=== PATIENT | female | born 1945 | race Caucasian/White ===

== ENCOUNTER → 2016-09-15 08:57 | Outpatient (CLI) | payer MEDICARE, BC ==
[2014-08-18 11:03] VITALS: BMI 20.4
[~2016-09-15 08:57] MED LIST: ARICEPT10 MG PO; CELEXA40 MG PO; CYTOTEC200 MCG PO; DEMEROL50 MG PO; DESERYL100 MG PO; MIDODRINE HCL10 MG PO; NEURONTIN 300300 MG PO; TOPAMAX25 MG PO; VALIUM 2 MG TAB2 MG PO; VOLTAREN75 MG PO
== END | disposition home or self-care (01) ==
LOC: D.MRI 08:57
DX: M75.42 Impingement syndrome of left shoulder (principal)

== ENCOUNTER 2016-10-20 05:58 | Day surgery (SDC) | payer MEDICARE, BC ==
[~2016-10-20] VITALS: Ht 162.6 cm; Wt 51.7 kg
[2016-10-20] MEDS ORDERED: TRAZODONE HCL300 MG PO (06:59)
[2016-10-20] MEDS ORDERED: CLARITIN 10 MG10 MG PO (07:00)
[2016-10-20] MEDS ORDERED: PRAVACHOL40 MG PO (07:00)
[2016-10-20] MEDS ORDERED: FLUDROCORTISON0.1 MG PO (07:01)
[2016-10-20] MEDS ORDERED: CYMBALTA30 MG PO (07:02)
[2016-10-20] MEDS ORDERED: SINGULAIR10 MG PO (07:02)
[2016-10-20 07:03] LABS: HEMATOCRIT 37.7 % (36.0-48.0); HEMOGLOBIN 12.3 g/dL (12-16); MCH 30.3 pg (26.0-34.0); MCHC 32.6 g/dL (31.0-37.0); MCV 92.9 fL (80.0-100.0); MEAN PLATELET VOLUME 9.8 fL (7.4-10.4); RBC 4.06 10x6/uL (4.00-5.40); RDW 12.6 % (11.5-14.5); WBC 4.4 10x3/uL (4.8-10.8)
[2016-10-20] MEDS ORDERED: IMITREX50 MG PO (07:03)
[2016-10-20] MEDS ORDERED: CALCIUM 500 + D1 TAB PO (07:04)
[2016-10-20] MEDS ORDERED: VITAMIN D3400 UNI1 PO (07:05)
[2016-10-20] MEDS ORDERED: FOLIC ACID1 MG PO (07:05)
[2016-10-20 07:17] VITALS: BP 116/82; Ht 162.6 cm; Wt 51.7 kg
[2016-10-20] MEDS ORDERED: MEPERIDINE HCL50 MG PO (09:21)
--- NOTE | 2016-10-20 11:25 | NUR ---
1120 DISCHARGE INSTRUCTIONS COMPLETE. PRESCRIPTION FOR MEPERIDINE GIVEN. INSTRUCTED ON PENDULUM EXERCISES. SHE HAS NO QUESTIONS OR CONCERNS AT THIS TIME. ESCORTED OUT BY VOLUNTEER.
--- NOTE | 2016-10-20 14:36 | OP ---
PATIENT NAME: ALEJANDRO HUGGINS MEDICAL RECORD: [id number] :45 [facility] [place] ADMISSION DATE: SURGEON: ISAIAS LUX, YOLANDA GANDARA DATE OF OPERATION: 10/20/2016 PREOPERATIVE DIAGNOSES: 1. Rotator cuff tear of the right shoulder. 2. Impingement syndrome of the right shoulder. 3. Acromioclavicular arthritis of the right shoulder. POSTOPERATIVE DIAGNOSES: 1. Rotator cuff tear of the right shoulder. 2. Impingement syndrome of the right shoulder. 3. Acromioclavicular arthritis of the right shoulder. PROCEDURES: Right shoulder arthroscopy with arthroscopic subacromial decompression, acromioplasty, bursectomy, rotator cuff repair and distal clavicle excision. SURGEON: Yolanda Esparza MD ANESTHESIA: General. INTRAOPERATIVE COMPLICATIONS: None. SUMMARY OF PATHOLOGIC FINDINGS: Consistent with the preoperative diagnosis, the patient had complete thickness tearing of the rotator cuff anteriorly, the anterior aspect of the supraspinatus type 3 downward sloping acromion with grade IV chondromalacia of acromioclavicular joint. OPERATIVE SUMMARY IN DETAIL: After obtaining the appropriate preoperative orthopedic surgery consent as well as anesthetic consultation, evaluation and clearance, the patient was brought to the operating room and placed on the operating table in supine position. After general laryngeal mask was administered, the patient was placed in a left lateral decubitus position. All pressure points were well padded to include down leg peroneal pad as well as axillary roll. She was held firmly to the operating table using the vacuum pack suction system. Left upper extremity and shoulder were then prepped and draped in a routine sterile fashion. The arm was held in the [employer] traction boom at 30 degrees of forward flexion, 30 degrees of abduction, 10 pounds of traction laterally. Arthroscopy was established in the glenohumeral joint from a posterior portal. Anterior portal was established in the anterior safe interval. Diagnostic arthroscopy revealed the above findings. Attention was first turned to the rotator cuff tear. A small transrotator cuff assessment portal was created to decorticate and repair and prepare for operation of the rotator cuff. Scope was then placed in the subacromial position where a 5-0 barrel bur was used to perform acromioplasty at the level of acromioclavicular joint and take down all subacromial bursal tissue. The distal aspect of the clavicle was identified, 1 cm of the distal clavicle was removed under direct arthroscopic visualization. Having completed this, a single #2 FiberTape was placed in an inverted mattress style fashion and anchored laterally with a 5.5 SwiveLock from [employer]. This resulted in excellent anatomic repair. Arthroscopic portals were closed in routine interrupted fashion. TRANSINT:[id number] Voice Confirmation ID: [id number] DOCUMENT ID: [id number] OPERATIVE REPORT [id number] ALEJANDRO HUGGINS MD, YOLANDA GANDARA at 1436 CC: [id number] DICTATION DATE: 10/20/16 0945 [employer] ATTENDANT: 10/20/16 1046 [facility] 10/20/16 [id number] [place] [address]
== END 2016-10-20 11:20 | disposition home or self-care (01) ==
LOC: D.OPS 05:58 → D.PAN 09:45 → D.OPS 09:50 → D.PAN 11:00 → D.OPS 11:20
PROVIDERS: Anesthesiology
DX: M75.121 Complete rotator cuff tear or rupture of right shoulder, not specified as traumatic (principal); M75.41 Impingement syndrome of right shoulder; M13.811 Other specified arthritis, right shoulder; Z01.812 Encounter for preprocedural laboratory examination

== ENCOUNTER 2016-11-16 09:04 | Emergency (ER) | payer MEDICARE, BC ==
[2016-10-20 07:17] VITALS: BMI 20.4
[~2016-11-16 09:04] MED LIST changes: +CALCIUM 500 + D1 TAB PO; +CLARITIN 10 MG10 MG PO; +CYMBALTA30 MG PO; +FLUDROCORTISON0.1 MG PO; +FOLIC ACID1 MG PO; +IMITREX50 MG PO; +MEPERIDINE HCL50 MG PO; +PRAVACHOL40 MG PO; +SINGULAIR10 MG PO; +TRAZODONE HCL300 MG PO; +VITAMIN D3400 UNI1 PO
[2016-11-16 10:08] LABS: BASOPHILS 0.2 % (0-2); EOSINOPHILS 1.7 % (0-7); HEMATOCRIT 36.3 % (36.0-48.0); HEMOGLOBIN 12.5 g/dL (12-16); IMMATURE GRANULOCYTES 0.2 % (0-5); MCH 30.7 pg (26.0-34.0); MCHC 34.4 g/dL (31.0-37.0); MCV 89.2 fL (80.0-100.0); MEAN PLATELET VOLUME 9.4 fL (7.4-10.4); MONOCYTES 5.9 % (2-11); RBC 4.07 10x6/uL (4.00-5.40); RDW 12.6 % (11.5-14.5); WBC 5.8 10x3/uL (4.8-10.8)
[2016-11-16 10:14] LABS: PLATELET COUNT 184 10x3/uL (130-400)
[2016-11-16 10:19] LABS: ALBUMIN 3.5 g/dL (3.4-5.0); ANION GAP 14.4 mmol/L (8-16); BILIRUBIN - TOTAL 0.3 mg/dL (0.2-1.3); CALCIUM 8.9 mg/dL (8.5-10.1); CARBON DIOXIDE 24.2 mmol/L (21.0-32.0); CREATININE - SERUM 1.2 mg/dL (0.6-1.3); POTASSIUM - SERUM 3.6 mmol/L (3.5-5.1); PROTEIN - SERUM 6.5 g/dL (6.4-8.2)
== END 2016-11-16 10:58 | disposition home or self-care (01) ==
LOC: D.ER 09:04
PROVIDERS: Emergency Medicine
DX: S00.01XA Abrasion of scalp, initial encounter (principal); W19.XXXA Unspecified fall, initial encounter; Y93.89 Activity, other specified; Y92.89 Other specified places as the place of occurrence of the external cause

== ENCOUNTER 2017-04-27 22:51 | Emergency (ER) | payer MEDICARE, BC ==
[2016-10-20 07:17] VITALS: BMI 20.4
[2017-04-27 23:36] LABS: BASOPHILS 0.3 % (0-2); EOSINOPHILS 0.1 % (0-7); HEMATOCRIT 37.1 % (36.0-48.0); HEMOGLOBIN 12.5 g/dL (12-16); IMMATURE GRANULOCYTES 0.1 % (0-5); MCH 30.6 pg (26.0-34.0); MCHC 33.7 g/dL (31.0-37.0); MCV 90.9 fL (80.0-100.0); MEAN PLATELET VOLUME 9.4 fL (7.4-10.4); MONOCYTES 5.9 % (2-11); NEUTROPHILS 84.6 % (40-80); PLATELET COUNT 168 10x3/uL (130-400); RBC 4.08 10x6/uL (4.00-5.40); RDW 13.3 % (11.5-14.5); WBC 7.9 10x3/uL (4.8-10.8)
[2017-04-27 23:55] LABS: ALBUMIN 3.8 g/dL (3.4-5.0); ALKALINE PHOSPHATASE 55 U/L (46-116); ALT (SGPT) 14 U/L (10-68); BILIRUBIN - TOTAL 0.37 mg/dL (0.2-1.3); CALC OSMOLALITY 279 mosm/kg (275-300); CALCIUM 8.7 mg/dL (8.5-10.1); CARBON DIOXIDE 27.1 mmol/L (21.0-32.0); CHLORIDE - SERUM 104 mmol/L (98-107); CREATININE - SERUM 1.2 mg/dL (0.6-1.3); GLUCOSE 114 mg/dL (74-106); POTASSIUM - SERUM 3.4 mmol/L (3.5-5.1); PROTEIN - SERUM 6.9 g/dL (6.4-8.2); SODIUM 140 mmol/L (136-145); UREA NITROGEN 13 mg/dL (7-18); eGFR NON AFRICAN AMERICAN 47 mL/min (90-120)
[2017-04-28 00:09] LABS: LIPASE 233 U/L (73-393); PRO BNP 195 pg/mL (0-125)
[2017-04-28 00:13] LABS: TROPONIN-I < 0.017 ng/mL (0.000-0.060)
== END 2017-04-28 01:50 | disposition home or self-care (01) ==
LOC: D.ER 22:51
PROVIDERS: Family Medicine
DX: J11.1 Influenza due to unidentified influenza virus with other respiratory manifestations (principal)